=== PATIENT | female | born 1970 | race Caucasian/White ===

== ENCOUNTER 2017-04-23 11:38 | Emergency (ER) | payer BC ==
[~2017-04-23] VITALS: Ht 162.6 cm; Wt 70.0 kg
[2017-04-23 11:47] VITALS: BP 164/76; PULSE 83; RESP 16; TEMP 98.2; O2SAT 98
[2017-04-23 12:21] VITALS: O2SAT 98
[2017-04-23] MEDS ORDERED: SODIUM CHLORIDE 0.9% FLUSH 5 ML FLUSH IV FLUSH PRN (12:30)
[2017-04-23 12:41] LABS: AUTOMATED NEUTROPHIL # 5.4 TH/MM3 (1.8-7.7); BASOPHIL # 0.1 TH/MM3 (0-0.2); BASOPHIL % 0.8 % (0.0-2.0); EOSINOPHIL # 0.1 TH/MM3 (0-0.4); EOSINOPHIL % 1.4 % (0.0-4.0); HEMO FLAGS DIFF FINAL; LYMPH % 19.3 % (9.0-44.0); LYMPHOCYTE # 1.5 TH/MM3 (1.0-4.8); MEAN CELL VOLUME 92.1 FL (80.0-100.0); MEAN CORPUSCULAR HEMOGLOBIN 31.1 PG (27.0-34.0); MEAN CORPUSCULAR HGB CONC 33.7 % (32.0-36.0); MONO % 8.7 % (0.0-8.0); NEUT % 69.8 % (16.0-70.0); PLATELET COUNT 243 TH/MM3 (150-450); RED BLOOD COUNT 4.89 MIL/MM3 (4.00-5.30); RED CELL DISTRIBUTION WIDTH 14.1 % (11.6-17.2); WHITE BLOOD COUNT 7.8 TH/MM3 (4.0-11.0)
[2017-04-23 12:50] LABS: CHLORIDE 107 MEQ/L (98-107); POTASSIUM 3.9 MEQ/L (3.5-5.1); SODIUM (NA) 140 MEQ/L (136-145)
[2017-04-23 12:54] LABS: ANION GAP 6 MEQ/L (5-15); BICARBONATE 26.6 MEQ/L (21.0-32.0); BLOOD UREA NITROGEN 12 MG/DL (7-18)
[2017-04-23 12:56] LABS: ALT (GPT) 16 U/L (10-53)
[2017-04-23 12:57] LABS: AST (GOT) 39 U/L (15-37); GLOMERULAR FILTRATION RATE 91 ML/MIN (>89)
[2017-04-23 12:58] LABS: TOTAL BILIRUBIN ADULT 0.3 MG/DL (0.2-1.0)
[2017-04-23 12:59] LABS: ALKALINE PHOSPHATASE 70 U/L (45-117)
--- NOTE | 2017-04-23 13:15 | PD ---
HPI Chief Complaint: Dizziness Time Seen by Provider: 12:07 Travel History International Travel<30 days: No Contact w/Intl Traveler<30days: No Traveled to known affect area: No History of Present Illness HPI This is a 46-year-old female who presents to the emergency department having 2 weeks of intermittent episodes where she says she is often driving, she feels very anxious, dizzy and feels like she's not herself. She usually used a pole over and it lasts for about 10 minutes. She says she can't look up or else that makes it worse. She denies any associated headache. She denies any loss of bowels or bladder but she does have a family history of epilepsy. She says she feels like she's getting panic attacks. This is never happened to her before. It's to the point where she feels like she can't drive. Her recently and she says she was just getting her life back in order. She recently started taking a multivitamin thinking that would help the problem. She also has been treating herself for possible swimmer's ear thinking it might have been an ear infection. [facility] Past Medical History Medical History: Denies Significant Hx Diminished Hearing: No Tetanus Vaccination: Unknown Influenza Vaccination: No ?: Not LMP: MENOPAUSAL Past Surgical History Surgical History: No Previous Surgery Social History Alcohol Use: Yes (wine with dinner) Tobacco Use: Yes (1 PPD) Substance Use: No Allergies-Medications (Allergen,Severity, Reaction): Coded Allergies: No Known Allergies (Unverified , 04/23/17) Reported Meds & Prescriptions Reported Meds & Active Scripts Active No Active Prescriptions or Reported Medications Review of Systems Except as stated in HPI: all other systems reviewed are Neg Physical Exam Narrative GENERAL:Well appearing, no acute distress SKIN: Focused skin assessment warm and dry. HEAD: Atraumatic. Normocephalic. EYES: Pupils equal and round. No injection or drainage. ENT: Moist mucous membranes NECK: Trachea midline. CARDIOVASCULAR: Regular rate and rhythm. No murmur appreciated. RESPIRATORY: Clear to auscultation. Breath sounds equal bilaterally. GASTROINTESTINAL: Abdomen soft, non-tender, nondistended. MUSCULOSKELETAL: No obvious deformities. NEUROLOGICAL: Awake and alert. No obvious cranial nerve deficits. No dysarthria or aphasia. No upper or lower extremity drift. No upper extremity ataxia. Visual montague intact. PSYCHIATRIC: Appropriate mood and affect; insight and judgment normal. Data Data Last Documented VS Vital Signs Date Time Temp Pulse Resp B/P (MAP) Pulse Ox O2 Delivery O2 Flow Rate FiO2 04/23/17 12:21 98 04/23/17 11:47 98.2 83 16 164/76 (105) Orders Orders Electrocardiogram (04/23/17 12:18) Complete Blood Count With Diff (04/23/17 12:18) Comprehensive Metabolic Panel (04/23/17 12:18) Thyroid Stimulating Hormone (04/23/17 12:18) Ct Brain W/O Iv Contrast(Rout) (04/23/17 12:18) Blood Glucose (04/23/17 12:18) Ecg Monitoring (04/23/17 12:18) Iv Access Insert/Monitor (04/23/17 12:18) Oximetry (04/23/17 12:18) Sodium Chloride 0.9% Flush (Ns Flush) (04/23/17 12:30) Labs Laboratory Tests Test 04/23/17 12:32 White Blood Count 7.8 TH/MM3 Red Blood Count 4.89 MIL/MM3 Hemoglobin 15.2 GM/DL Hematocrit 45.0 % Mean Corpuscular Volume 92.1 FL Mean Corpuscular Hemoglobin 31.1 PG Mean Corpuscular Hemoglobin Concent 33.7 % Red Cell Distribution Width 14.1 % Platelet Count 243 TH/MM3 Mean Platelet Volume 8.0 FL Neutrophils (%) (Auto) 69.8 % Lymphocytes (%) (Auto) 19.3 % Monocytes (%) (Auto) 8.7 % Eosinophils (%) (Auto) 1.4 % Basophils (%) (Auto) 0.8 % Neutrophils # (Auto) 5.4 TH/MM3 Lymphocytes # (Auto) 1.5 TH/MM3 Monocytes # (Auto) 0.7 TH/MM3 Eosinophils # (Auto) 0.1 TH/MM3 Basophils # (Auto) 0.1 TH/MM3 CBC Comment DIFF FINAL Differential Comment Blood Urea Nitrogen 12 MG/DL Creatinine 0.69 MG/DL Random Glucose 81 MG/DL Total Protein 7.2 GM/DL Albumin 3.6 GM/DL Calcium Level 8.6 MG/DL Alkaline Phosphatase 70 U/L Aspartate Amino Transf (AST/SGOT) 39 U/L Alanine Aminotransferase (ALT/SGPT) 16 U/L Total Bilirubin 0.3 MG/DL Sodium Level 140 MEQ/L Potassium Level 3.9 MEQ/L Chloride Level 107 MEQ/L Carbon Dioxide Level 26.6 MEQ/L Anion Gap 6 MEQ/L Estimat Glomerular Filtration Rate 91 ML/MIN Thyroid Stimulating Hormone 3rd Gen 1.340 uIU/ML MDM Medical Decision Making Medical Screen Exam Complete: Yes Emergency Medical Condition: Yes Interpretation(s) CT head: No intracranial hemorrhage Labs: Reassuring Differential Diagnosis Panic attack, seizure, tumor, peripheral vertigo Narrative Course This is a 46-year-old female who presents to the emergency department with intermittent episodes of feeling not herself associated with dizziness, hyperventilation and what feels like panic. I suspect these are panic attacks. Labs are obtained which are reassuring and CT of the head was unremarkable. She does have a family history of epilepsy. I think it would be reasonable for her to follow-up with a neurologist although she has no classic symptoms of seizure. I think she is safe for an outpatient evaluation. She is a completely normal neurologic exam. She was prescribed hydroxyzine. Diagnosis Primary Impression: Episodes of decreased attentiveness Referrals: Shae Espinoza MD Patient Instructions: General Instructions Additional Instructions: If you develop severe worsening headache, persistent vomiting, numbness, weakness, difficulty walking or difficulty talking return to the emergency department immediately. Follow-up with a neurologist as soon as possible. Med/Other Pt SpecificInfo: Prescription(s) given Scripts Hydroxyzine HCl (Hydroxyzine HCl) 25 Mg Tab 25 MG PO QID Y for ANXIETY, #15 TAB 0 Refills Prov: Shana Delgado MD 04/23/17 Disposition: 01 DISCHARGE HOME Condition: Stable Shana Delgado MD Apr 23, 2017 13:15
--- NOTE | 2017-04-23 13:44 | RADRPT ---
EXAM DATE/TIME: 04/23/2017 13:24 [facility] COMPARISON: No previous studies available for comparison. INDICATIONS : Dizziness RADIATION DOSE: 61.07 CTDIvol (mGy) MEDICAL HISTORY : Recent panic attacks. SURGICAL HISTORY : None. ENCOUNTER: Initial ACUITY: 1 week PAIN SCALE: 0/10 LOCATION: cranial TECHNIQUE: Multiple contiguous axial images were obtained of the head. Using automated exposure control and adj ustment of the mA and/or kV according to patient size, radiation dose was kept as low as reasonably a chievable to obtain optimal diagnostic quality images. DICOM format image data is available electro nically for review and comparison. FINDINGS: CEREBRUM: The ventricles are normal for age. No evidence of midline shift, mass lesion, hemorrhage or acute in farction. No extra-axial fluid collections are seen. POSTERIOR FOSSA: The cerebellum and brainstem are intact. The 4th ventricle is midline. The cerebellopontine angle i s unremarkable. EXTRACRANIAL: The visualized portion of the orbits is intact. SKULL: The calvaria is intact. No evidence of skull fracture. CONCLUSION: Negative for acute process. Ancelmo Live MD FACR on April 23, 2017 at 13:42 Board Certified Radiologist. This report was verified electronically.
[2017-04-23] MEDS ORDERED: HYDR-3133 PO (13:56)
--- NOTE | 2017-04-23 17:20 | EKG ---
Date Performed: 04/23/2017 Time Performed: 12:24:46 PTAGE: 46 years EKG: Sinus rhythm NORMAL ECG NO PREVIOUS TRACING DOCTOR: Richard Ochoa Interpretating Date/Time 04/23/2017 17:18:08
== END 2017-04-23 14:17 | disposition home or self-care (01) ==
LOC: PHED 11:38
DX: R44.8 Other symptoms and signs involving general sensations and perceptions (principal); R42 Dizziness and giddiness; F41.9 Anxiety disorder, unspecified; R06.4 Hyperventilation; F17.200 Nicotine dependence, unspecified, uncomplicated
CPT/HCPCS: 70450; 80053; 84443; 85025; 93005